=== PATIENT | female | born 1965 | race Caucasian/White ===

== ENCOUNTER 2017-10-21 15:38 | Outpatient (REF) | payer MEDICARE, SELFPAY ==
--- NOTE | 2017-10-21 13:30 | SKI_PTH ---
PATIENT: Kathi Pemberton LOC: [facility] U#:[id number] AGE/SX: 51/F ROOM: RE10/21/[address]: Neymar Arriaga : 1965 BED: DIS: 10/21/2017 SPEC #: [id number] RECD: 10/22/17 12:35 STATUS: NANO REQ #: [id number] JOE: 10/21/17 13:[address]: Neymar Arriaga DEPT: Surgical Specimen RECD BY: Hodan Contreras Tissues: 1 - SKIN BIOPSY(SHAVE/PUNCH) Procedures: SKIN LEVEL 4 Comments: [id number]
== END 2017-10-21 15:39 ==
LOC: NCHCN 15:38
PROVIDERS: PCP Family Medicine; Visit Provider Family Medicine
DX: D23.5 Other benign neoplasm of skin of trunk (principal)
CPT/HCPCS: 88305

== ENCOUNTER 2018-03-19 12:37 | Outpatient (REF) | payer MEDICARE, SELFPAY ==
[2018-03-19 22:23] LABS: Abs Immature Grans 0.04 k/cumm (0.0-0.09); Absolute Basophil Count 0.04 k/cumm (0.0-0.2); Absolute Eosinophil Count 0.23 k/cumm (0.0-0.7); Absolute Lymphocyte Count 1.86 k/cumm (1.2-3.4); Absolute Monocyte Count 0.69 k/cumm (0.11-0.7); Absolute Neutrophil Count 4.58 k/cumm (1.2-6.7); Basophils % 0.5; Eosinophils % 3.1; HCT 40.2 % (36.0-46.0); HGB 13.5 g/dL (12.0-15.5); Immature Grans % 0.5; Mean Corp. HGB Concentration 33.6 g/dL (32.0-36.0); Mean Corpuscular Hemoglobin 31.9 pg (27.0-33.0); Mean Platelet Volume 11.4 fL (8.0-11.0); Monocytes % 9.3; Neutrophils % 61.6; Platelet Count 227 x1000/uL (130-400); RBC 4.23 m/cumm (4.00-5.20); RBC Distribution Width 14.9 % (11.7-14.6); White Blood Cell Count 7.44 k/cumm (4.4-10.8)
[2018-03-19 22:44] LABS: Lithium < 0.02 mmol/L (0.60-1.20)
[2018-03-19 23:00] LABS: Folate 12.5 ng/mL (8.6-20.0); TSH (W/Ref FT4) 3.49 uIU/mL (0.358-3.74); Vitamin B12 817 pg/mL (193-986)
[2018-03-20 13:39] LABS: ALT 129 U/L (12-78); AST 133 U/L (15-37); Albumin 3.8 g/dL (3.4-5.0); Alkaline Phosphatase 190 U/L (46-116); Anion Gap 12.8 mmol/L (3-11); BUN 6 mg/dL (7-18); Bilirubin, Total 0.3 mg/dL (0.2-1.0); CO2 25.2 mmol/L (21.0-32.0); CREATININE 0.67 mg/dL (0.55-1.02); Calcium 9.5 mg/dL (8.5-10.1); Chloride 101 mmol/L (98-107); Glucose 133 mg/dL (70-100); Potassium 4.6 mmol/L (3.5-5.1); Sodium 139 mmol/L (136-145); Total Protein 7.6 g/dL (6.4-8.2)
[2018-03-20 14:03] LABS: Vitamin D 25 Total 14.2 ng/ml (30-100)
== END 2018-03-19 12:57 ==
LOC: NCHCN 12:37
PROVIDERS: PCP Family Medicine; Visit Provider Family Medicine
DX: E55.9 Vitamin D deficiency, unspecified (principal); I10 Essential (primary) hypertension; F43.10 Post-traumatic stress disorder, unspecified; L98.9 Disorder of the skin and subcutaneous tissue, unspecified; K76.0 Fatty (change of) liver, not elsewhere classified; Z13.0 Encounter for screening for diseases of the blood and blood-forming organs and certain disorders involving the immune mechanism; Z13.29 Encounter for screening for other suspected endocrine disorder
CPT/HCPCS: 80053; 82306; 80178; 82607; 82746; 84443; 85025

== ENCOUNTER 2018-04-16 11:12 | Outpatient (REF) | payer MEDICARE, SELFPAY | END 2018-04-16 11:32 | LOC: NCHCN 11:12 | PROVIDERS: PCP Family Medicine; Visit Provider Nurse Practitioner Family | DX: F41.8 Other specified anxiety disorders (principal); Z79.899 Other long term (current) drug therapy; Z51.81 Encounter for therapeutic drug level monitoring | CPT/HCPCS: 80178 ==

== ENCOUNTER 2018-10-28 11:12 | Outpatient (REF) | payer MEDICARE, SELFPAY ==
[2018-10-28 21:12] LABS: BUN 6 mg/dL (7-18); CREATININE 0.61 mg/dL (0.55-1.02); Calcium 9.7 mg/dL (8.5-10.1); Chloride 98 mmol/L (98-107); Glucose 110 mg/dL (70-100); Potassium 4.8 mmol/L (3.5-5.1); Sodium 136 mmol/L (136-145)
[2018-10-28 21:44] LABS: Hemoglobin A1C 6.5 % (4.5-6.2)
== END 2018-10-28 11:32 ==
LOC: NCHCN 11:12
PROVIDERS: PCP Family Medicine; Visit Provider Registered Nurse
DX: E11.9 Type 2 diabetes mellitus without complications (principal); E87.6 Hypokalemia
CPT/HCPCS: 80048; 83036

== ENCOUNTER 2019-02-02 13:00 | Outpatient (REF) | payer MEDICARE, SELFPAY ==
[2019-02-02 22:59] LABS: COMMENT (LAB VIEW ONLY) 45.52 mg/dL
== END 2019-02-02 13:20 ==
LOC: NCHCN 13:00
PROVIDERS: PCP Family Medicine; Visit Provider Registered Nurse
DX: R80.9 Proteinuria, unspecified (principal)
CPT/HCPCS: 82043; 82570

== ENCOUNTER 2019-02-25 10:37 | Outpatient (REF) | payer MEDICARE, SELFPAY ==
[2019-02-25 22:41] LABS: Anion Gap 10.9 mmol/L (3-11); BUN 9 mg/dL (7-18); CO2 26.1 mmol/L (21.0-32.0); CREATININE 0.66 mg/dL (0.55-1.02); Calcium 9.3 mg/dL (8.5-10.1); Calculated LDL 226 mg/dL; Chloride 98 mmol/L (98-107); Cholesterol 316 mg/dL (<200); Glucose 136 mg/dL (74-106); HDL Cholesterol 36 mg/dL (40-60); Potassium 4.2 mmol/L (3.5-5.1); Sodium 135 mmol/L (136-145); Triglyceride 272 mg/dL (<150)
== END 2019-02-25 10:57 ==
LOC: NCHCN 10:37
PROVIDERS: PCP Family Medicine; Visit Provider Registered Nurse
DX: I10 Essential (primary) hypertension (principal); E11.9 Type 2 diabetes mellitus without complications; E78.5 Hyperlipidemia, unspecified
CPT/HCPCS: 80048; 80061

== ENCOUNTER 2019-08-19 12:02 | Outpatient (REF) | payer MEDICARE, SELFPAY ==
--- NOTE | 2019-08-19 11:20 | PAPFT_PTH ---
PATIENT: Kathi Pemberton LOC: [facility]#:[id number] AGE/SX: 53/F ROOM: RE08/19/[address]: Shiloh Woods : 1965 BED: DIS: 08/19/2019 SPEC #: [id number] RECD: 08/20/19 12:28 STATUS: NANO RENani #: [id number] JOE: 08/19/19 11:[address]: Shiloh Woods DEPT: [facility] Cytology RECD BY: Hodan Contreras ENTERED: 08/20/19 12:28 SP TYPE: PAPFT OTHR DR: Neymar Arriaga Tissues: 1 - CX/ENDOCX FOR PAP SMEARS Procedures: PAP THIN PREP/[facility] Screening HPV DNA PROBE Comments: [id number]
[2019-08-19 20:58] LABS: Calculated LDL 140 mg/dL (<100); Cholesterol 238 mg/dL (<200); HDL Cholesterol 55 mg/dL (40-60); Triglyceride 217 mg/dL (<150)
== END 2019-08-19 12:22 ==
LOC: NCHCN 12:02
PROVIDERS: PCP Family Medicine; Visit Provider Registered Nurse
DX: E78.5 Hyperlipidemia, unspecified (principal); Z12.4 Encounter for screening for malignant neoplasm of cervix
CPT/HCPCS: 80061; 88142; 87624

== ENCOUNTER 2020-03-09 15:40 | Outpatient (REF) | payer MEDICARE, SELFPAY ==
[2020-03-09 22:11] LABS: ALT 124 U/L (14-59); AST 84 U/L (15-37); Albumin 4.2 g/dL (3.4-5.0); Alkaline Phosphatase 127 U/L (46-116); Anion Gap 11.2 mmol/L (3-11); BUN 9 mg/dL (7-18); Bilirubin, Total 0.4 mg/dL (0.2-1.0); CO2 25.8 mmol/L (21.0-32.0); CREATININE 0.66 mg/dL (0.55-1.02); Calcium 9.6 mg/dL (8.5-10.1); Chloride 98 mmol/L (98-107); Glucose 133 mg/dL (74-106); Potassium 4.5 mmol/L (3.5-5.1); Sodium 135 mmol/L (136-145); Total Protein 7.6 g/dL (6.4-8.2)
[2020-03-09 22:49] LABS: COMMENT (LAB VIEW ONLY) 54.54 mg/dL
[2020-03-09 22:52] LABS: Microalb ug/mg Crea 569.7 ug/mg Cr
== END 2020-03-09 16:00 ==
LOC: NCHCN 15:40
PROVIDERS: PCP Family Medicine; Visit Provider Registered Nurse
DX: I10 Essential (primary) hypertension (principal); R80.9 Proteinuria, unspecified
CPT/HCPCS: 80053; 82043; 82570

== ENCOUNTER 2020-09-30 13:48 | Outpatient (REF) | payer MEDICARE, SELFPAY ==
[2020-09-30 15:22] LABS: ALT 95 U/L (14-59); AST 67 U/L (15-37); Albumin 4.2 g/dL (3.4-5.0); Alkaline Phosphatase 141 U/L (46-116); Bilirubin, Direct 0.1 mg/dL (0.0-0.2); Bilirubin, Total 0.3 mg/dL (0.2-1.0); Total Protein 7.6 g/dL (6.4-8.2)
[2020-10-03 11:10] LABS: HBs Antibody, Quant <3.1 mIU/mL (See Note); Hepatitis B Surface Ab Negative (See Note)
[2020-10-03 12:01] LABS: Hepatitis C Ab w Rflx HCV PCR Negative (Negative)
== END 2020-09-30 13:49 | disposition home or self-care (01) ==
LOC: NCHCN 13:48
PROVIDERS: PCP Family Medicine; Visit Provider Nurse Practitioner Family
DX: Z00.00 Encounter for general adult medical examination without abnormal findings (principal); K76.9 Liver disease, unspecified; K76.0 Fatty (change of) liver, not elsewhere classified; F10.10 Alcohol abuse, uncomplicated
CPT/HCPCS: 80076; 86706; 86803

== ENCOUNTER 2021-06-16 15:50 | Outpatient (REF) | payer MEDICARE, SELFPAY ==
[2021-06-16 16:07] LABS: Hemoglobin A1C 6.2 % (<5.7)
[2021-06-16 16:11] LABS: ALT 96 U/L (14-59); AST 86 U/L (15-37); Albumin 4.2 g/dL (3.4-5.0); Alkaline Phosphatase 170 U/L (46-116); Anion Gap 11.3 mmol/L (3-11); BUN 5 mg/dL (7-18); Bilirubin, Total 0.5 mg/dL (0.2-1.0); CO2 29.7 mmol/L (21.0-32.0); CREATININE 0.6 mg/dL (0.55-1.02); Calcium 9.8 mg/dL (8.5-10.1); Calculated LDL 104 mg/dL (<100); Chloride 92 mmol/L (98-107); Cholesterol 200 mg/dL (<200); Glucose 132 mg/dL (74-106); HDL Cholesterol 74 mg/dL (40-60); Potassium 4.5 mmol/L (3.5-5.1); Sodium 133 mmol/L (136-145); Total Protein 7.7 g/dL (6.4-8.2); Triglyceride 113 mg/dL (<150)
== END 2021-06-16 15:51 | disposition home or self-care (01) ==
LOC: NCHCN 15:50
PROVIDERS: PCP Registered Nurse; Visit Provider Registered Nurse
DX: E11.9 Type 2 diabetes mellitus without complications (principal); I10 Essential (primary) hypertension; E66.9 Obesity, unspecified; K76.0 Fatty (change of) liver, not elsewhere classified; E78.5 Hyperlipidemia, unspecified
CPT/HCPCS: 80053; 80061; 83036